=== PATIENT | female | born 1975 | race Caucasian/White ===

== ENCOUNTER → 2024-02-07 10:37 | Outpatient (REF) | payer OTHER, SELFPAY | LOC: RAD 10:37 | PROVIDERS: ATTENDING PHYSICIAN Nurse Practitioner Adult Health | DX: M25.562 Pain in left knee (principal); W19.XXXA Unspecified fall, initial encounter | CPT/HCPCS: 73564; 73610 ==

== ENCOUNTER → 2024-03-27 15:12 | Outpatient (REF) | payer OTHER, SELFPAY | LOC: WDC 15:12 | PROVIDERS: ATTENDING PHYSICIAN Internal Medicine | DX: Z12.31 Encounter for screening mammogram for malignant neoplasm of breast (principal) | CPT/HCPCS: 77063; 77067 ==